=== PATIENT | female | born 1970 | race Caucasian/White ===

== ENCOUNTER 2022-06-22 12:31 | Emergency (ER) | payer OTHER ==
[2022-06-22 13:11] VITALS: BP 168/101; PULSE 85; TEMP 98
--- NOTE | 2022-06-22 16:03 | ED ---
General Adult HPI - General Chief complaint: Abdominal Pain Stated complaint: infected hernia Time Seen by Provider: 06/22/22 15:39 Source: patient Mode of arrival: ambulatory Limitations: no limitations - History of Present Illness Initial comments: Dictation was produced using [employer] dictation software. please excuse any grammatical, word or spelling errors. Chief Complaint: 52-year-old female presents emergency department for evaluation of hernia History of Present Illness: Patient's 52-year-old female she has a history of chronic left abdominal ventral hernia. Patient states that this hernia is been there for years. She called her primary care doctor because her hernia has been leaking fluid for the last couple weeks. It has any other abdominal pain. No nausea vomiting. No fevers. Patient states that her hernia appears to be baseline for the last several months. The ROS documented in this emergency department record has been reviewed and confirmed by me. Those systems with pertinent positive or negative responses have been documented in the HPI. All other systems are other negative and/or noncontributory. PHYSICAL EXAM: General Impression: Alert and oriented x3, not in acute distress HEENT: Normocephalic atraumatic, extra-ocular movements intact, pupils equal and reactive to light bilaterally, mucous membranes moist. Cardiovascular: Heart regular rate and rhythm Chest: Able to complete full sentences, no retractions, no tachypnea Abdomen: abdomen soft, large incarcerated hernia to the left lower abdomen, there is some shallow ulcerations noted within the skin folds. There doesn't appear to be debris collected in the skin folds, non-distended, no organomegaly Musculoskeletal: Pulses present and equal in all extremities, no peripheral edema Motor: no focal deficits noted Neurological: CN II-XII grossly intact, no focal motor or sensory deficits noted Skin: Intact with no visualized rashes Psych: Normal affect and mood ED course: 52-year-old female presents to the emergency department for leaking lower left abdominal hernia. Patient has had a hernia for years. Vital Signs upon arrival are within acceptable limits. Leakage is coming from shallow ulcerations within the skin fold. Laboratory evaluation obtained. Abdominal labs are negative. Patient observed in emergency department for approximately 4 hours. Patient given outpatient referral to general surgeon. She is told to keep the area as clean and dry as possible. Return precautions discussed. Patient is agreeable at discharge. - Related Data Allergies Allergy/AdvReac Type Severity Reaction Status Date / Time aspirin Allergy Rash/Hives Verified 06/22/22 13:11 Penicillins Allergy Rash/Hives Verified 06/22/22 13:11 Review of Systems ROS Statement: Those systems with pertinent positive or pertinent negative responses have been documented in the HPI. ROS Other: All systems not noted in ROS Statement are negative. Past Medical History Past Medical History: Hypertension History of Any Multi-Drug Resistant Organisms: None Reported Past Surgical History: No Surgical Hx Reported Past Psychological History: No Psychological Hx Reported Smoking Status: Never smoker Past Alcohol Use History: None Reported Past Drug Use History: Marijuana General Exam Limitations: no limitations Course Vital Signs 06/22/22 13:09 Temperature 98 F Pulse Rate 85 Respiratory 20 Rate Blood Pressure 168/101 O2 Sat by Pulse 99 Oximetry Medical Decision Making - Lab Data Result diagrams: 06/22/22 16:09 06/22/22 16:09 Lab Results 06/22/22 06/22/22 06/22/22 Range/Units 16:09 16:09 16:09 WBC 8.4 (3.8-10.6) k/uL RBC 4.56 (3.80-5.40) m/uL Hgb 13.1 (11.4-16.0) gm/dL Hct 39.9 (34.0-46.0) % MCV 87.4 (80.0-100.0) fL MCH 28.7 (25.0-35.0) pg MCHC 32.8 (31.0-37.0) g/dL RDW 15.0 (11.5-15.5) % Plt Count 255 (150-450) k/uL MPV 7.7 Neutrophils % 70 % Lymphocytes % 21 % Monocytes % 5 % Eosinophils % 2 % Basophils % 1 % Neutrophils # 5.9 (1.3-7.7) k/uL Lymphocytes # 1.8 (1.0-4.8) k/uL Monocytes # 0.4 (0-1.0) k/uL Eosinophils # 0.1 (0-0.7) k/uL Basophils # 0.1 (0-0.2) k/uL PT 9.8 (9.0-12.0) sec INR 0.9 (<1.2) APTT 23.5 (22.0-30.0) sec Sodium 139 (137-145) mmol/L Potassium 4.5 (3.5-5.1) mmol/L Chloride 100 (98-107) mmol/L Carbon Dioxide 28 (22-30) mmol/L Anion Gap 11 mmol/L BUN 21 H (7-17) mg/dL Creatinine 0.91 (0.52-1.04) mg/dL Est GFR (CKD-EPI)AfAm 83 (>60 ml/min/1.73 sqM) Est GFR (CKD-EPI)NonAf 72 (>60 ml/min/1.73 sqM) Glucose 85 (74-99) mg/dL Plasma Lactic Acid Claude (0.7-2.0) mmol/L Calcium 9.4 (8.4-10.2) mg/dL Total Bilirubin 0.3 (0.2-1.3) mg/dL AST 25 (14-36) U/L ALT 33 (4-34) U/L Alkaline Phosphatase 115 (38-126) U/L Total Protein 7.0 (6.3-8.2) g/dL Albumin 4.5 (3.5-5.0) g/dL 06/22/22 Range/Units 16:09 WBC (3.8-10.6) k/uL RBC (3.80-5.40) m/uL Hgb (11.4-16.0) gm/dL Hct (34.0-46.0) % MCV (80.0-100.0) fL MCH (25.0-35.0) pg MCHC (31.0-37.0) g/dL RDW (11.5-15.5) % Plt Count (150-450) k/uL MPV Neutrophils % % Lymphocytes % % Monocytes % % Eosinophils % % Basophils % % Neutrophils # (1.3-7.7) k/uL Lymphocytes # (1.0-4.8) k/uL Monocytes # (0-1.0) k/uL Eosinophils # (0-0.7) k/uL Basophils # (0-0.2) k/uL PT (9.0-12.0) sec INR (<1.2) APTT (22.0-30.0) sec Sodium (137-145) mmol/L Potassium (3.5-5.1) mmol/L Chloride (98-107) mmol/L Carbon Dioxide (22-30) mmol/L Anion Gap mmol/L BUN (7-17) mg/dL Creatinine (0.52-1.04) mg/dL Est GFR (CKD-EPI)AfAm (>60 ml/min/1.73 sqM) Est GFR (CKD-EPI)NonAf (>60 ml/min/1.73 sqM) Glucose (74-99) mg/dL Plasma Lactic Acid Claude 1.0 (0.7-2.0) mmol/L Calcium (8.4-10.2) mg/dL Total Bilirubin (0.2-1.3) mg/dL AST (14-36) U/L ALT (4-34) U/L Alkaline Phosphatase (38-126) U/L Total Protein (6.3-8.2) g/dL Albumin (3.5-5.0) g/dL Disposition Clinical Impression: Abdominal wall hernia Disposition: HOME SELF-CARE Condition: Good Instructions (If sedation given, give patient instructions): Ventral Hernia (ED) Is patient prescribed a controlled substance at d/c from ED?: No Referrals: Ace Wilson MD [STAFF PHYSICIAN] - 1-2 days
[2022-06-22 16:20] LABS: Basophils # (A) 0.1 k/uL (0-0.2); Basophils % (A) 1 %; Eosinophils # (A) 0.1 k/uL (0-0.7); Eosinophils % (A) 2 %; HCT 39.9 % (34.0-46.0); HGB 13.1 gm/dL (11.4-16.0); Lymphocytes # (A) 1.8 k/uL (1.0-4.8); Lymphocytes % (A) 21 %; MCH 28.7 pg (25.0-35.0); MCHC 32.8 g/dL (31.0-37.0); MCV 87.4 fL (80.0-100.0); Mean Platelet Volume 7.7; Monocytes # (A) 0.4 k/uL (0-1.0); Monocytes % (A) 5 %; Neutrophils # (A) 5.9 k/uL (1.3-7.7); Neutrophils % (A) 70 %; Platelet Count 255 k/uL (150-450); RBC 4.56 m/uL (3.80-5.40); WBC 8.4 k/uL (3.8-10.6)
[2022-06-22 16:33] LABS: Albumin 4.5 g/dL (3.5-5.0); Calcium 9.4 mg/dL (8.4-10.2); Potassium 4.5 mmol/L (3.5-5.1); Total Bilirubin 0.3 mg/dL (0.2-1.3)
[2022-06-22 16:38] LABS: INR 0.9 (<1.2); Partial Thromboplastin Time 23.5 sec (22.0-30.0); Prothrombin Time 9.8 sec (9.0-12.0)
[2022-06-22] MEDS ORDERED: NYSTATIN 100,000UNIT/GM CREAM 30 GM TUBE TOPICAL STA (16:45)
[2022-06-22 17:13] VITALS: RESP 18
[2022-06-22] MEDS ORDERED: NYSTATIN 100,000UNIT/GM CREAM 30 GM TUBE TOPICAL SCH (21:00)
== END 2022-06-22 17:13 | disposition home or self-care (01) ==
LOC: EC 12:31
DX: K46.9 Unspecified abdominal hernia without obstruction or gangrene (principal); I10 Essential (primary) hypertension; F12.90 Cannabis use, unspecified, uncomplicated; Z88.0 Allergy status to penicillin; Z88.6 Allergy status to analgesic agent
CPT/HCPCS: 36415; 80053; 83605; 85025; 85610; 85730; 99284

== ENCOUNTER 2022-07-28 09:39 | Observation (INO) | payer OTHER ==
[2022-07-23 14:30] VITALS: BMI 66.5
[~2022-07-28 09:39] MED LIST: ACETAMINOPHEN TAB 500 MG TAB PO PRN; DEXAMETHASONE SOD PHOSPHATE 4 MG/ML 1 ML VIAL IV ONE; HEPARIN SODIUM,PORCINE/PF 5,000 UNIT/0.5 ML SYRINGE SQ PRN; LACTATED RINGERS 1,000 ML IV SCH; MIDAZOLAM 2 MG/2 ML VIAL IV PRN; ONDANSETRON 4 MG/2 ML VIAL IVP ONE; SCOPOLAMINE 1 MG/72 HR PATCH TRANSDERM ONE; ceFAZolin 3 GM in SODIUM CHLORIDE 0.9% 100 ML IVPB PRN
[2022-07-28 11:49] LABS: Glucose,Whole Blood 99 mg/dL (70-110)
[2022-07-28 12:01] LABS: Basophils % (A) 1 %; Eosinophils # (A) 0.1 k/uL (0-0.7); Eosinophils % (A) 1 %; HCT 35.6 % (34.0-46.0); HGB 12.2 gm/dL (11.4-16.0); Lymphocytes # (A) 1.8 k/uL (1.0-4.8); Lymphocytes % (A) 20 %; MCH 29.7 pg (25.0-35.0); MCHC 34.1 g/dL (31.0-37.0); Mean Platelet Volume 8.2; Monocytes # (A) 0.4 k/uL (0-1.0); Monocytes % (A) 4 %; Neutrophils # (A) 6.5 k/uL (1.3-7.7); Neutrophils % (A) 72 %; Platelet Count 247 k/uL (150-450); RDW 15.2 % (11.5-15.5)
[2022-07-28] MEDS ORDERED: ONDANSETRON 4 MG/2 ML VIAL IVP ONE (12:04)
[2022-07-28] MEDS ORDERED: DEXAMETHASONE SOD PHOSPHATE 4 MG/ML 1 ML VIAL IVP ONE (12:05)
[2022-07-28 12:16] LABS: African American GFR (CKD) >90 (>60 ml/min/1.73 sqM); Anion Gap 7 mmol/L; Blood Urea Nitrogen 18 mg/dL (7-17); Calcium 9.2 mg/dL (8.4-10.2); Carbon Dioxide 28 mmol/L (22-30); Chloride 104 mmol/L (98-107); Glucose 100 mg/dL (74-99); Non-African American GFR(CKD) 82 (>60 ml/min/1.73 sqM); Potassium 4.2 mmol/L (3.5-5.1); Sodium 139 mmol/L (137-145)
[2022-07-28] MEDS: fentaNYL (PF) 50 MCG/1 ML VIAL IVP ONE ×2 (12:35→12:57)
--- NOTE | 2022-07-28 12:46 | P.GSHP ---
History of Present Illness H&P Date: 07/28/22 Chief Complaint: Incarcerated ventral hernia This a 52-year-old female who presents today for open repair of incarcerated ventral hernia. Patient has developed a tender mass just above her umbilicus. Patient's morbid obese. BMI 65. Past Medical History Past Medical History: Asthma, Hypertension Additional Past Medical History / Comment(s): IBS. NEUROPATHY RIGHT LEG History of Any Multi-Drug Resistant Organisms: None Reported Past Surgical History: Orthopedic Surgery Additional Past Surgical History / Comment(s): PURVIS CYST REMOVAL MULT. TIMES LEFT KNEE. LEFT KNEE SCOPE/MENISCUS REPAIR. D&C Past Anesthesia/Blood Transfusion Reactions: No Reported Reaction Past Psychological History: Depression Smoking Status: Former smoker Past Alcohol Use History: None Reported Past Drug Use History: Marijuana - Past Family History Mother Family Medical History: No Reported History Medications and Allergies Home Medications Medication Instructions Recorded Confirmed Type ARIPiprazole [Abilify] 5 mg PO DAILY 07/28/22 07/28/22 History Acetaminophen [Tylenol] 325 mg PO PRN 07/28/22 History Beclomethasone Dipropionate [Qvar 1 puff INHALATION BID 07/28/22 07/28/22 History 40 mcg Redihaler] Beclomethasone Dipropionate [Qvar 1 puff INHALATION BID 07/28/22 07/28/22 History 80mcg Redihaler] Cetirizine HCl 10 mg PO DAILY 07/28/22 07/28/22 History Furosemide [Lasix] 40 mg PO DAILY 07/28/22 07/28/22 History Ibuprofen 800 mg PO Q8H PRN 07/28/22 07/28/22 History Metoprolol Succinate (ER) [Toprol 25 mg PO DAILY 07/28/22 07/28/22 History Xl] Omeprazole [PriLOSEC] 10 mg PO DAILY 07/28/22 07/28/22 History Potassium Chloride [Klor-Con M20] 20 meq PO DAILY 07/28/22 07/28/22 History Allergies Allergy/AdvReac Type Severity Reaction Status Date / Time aspirin Allergy Rash/Hives Verified 07/28/22 11:06 Penicillins Allergy Rash/Hives Verified 07/28/22 11:06 Surgical - Exam Vital Signs Temp Pulse Resp BP Pulse Ox 97.4 F L 82 20 141/60 97 07/28/22 11:15 12/07/22 11:15 07/28/22 11:15 07/28/22 11:15 07/28/22 11:15 - General well developed, well nourished, no distress - Eyes PERRL - ENT normal pinna - Neck no masses - Respiratory normal expansion - Cardiovascular Rhythm: regular - Abdomen Abdomen is very obese. Patient has a large pannus. There is a 10 cm incarcerated ventral hernia located above the umbilicus Abdomen: soft, non tender Results - Labs 07/28/22 11:52 07/28/22 11:52 Abnormal Lab Results - Last 24 Hours (Table) 07/28/22 Range/Units 11:52 BUN 18 H (7-17) mg/dL Glucose 100 H (74-99) mg/dL Diabetes panel 07/28/22 Range/Units 11:52 Sodium 139 (137-145) mmol/L Potassium 4.2 (3.5-5.1) mmol/L Chloride 104 (98-107) mmol/L Carbon Dioxide 28 (22-30) mmol/L BUN 18 H (7-17) mg/dL Creatinine 0.82 (0.52-1.04) mg/dL Glucose 100 H (74-99) mg/dL Calcium 9.2 (8.4-10.2) mg/dL Calcium panel 07/28/22 Range/Units 11:52 Calcium 9.2 (8.4-10.2) mg/dL Pituitary panel 07/28/22 Range/Units 11:52 Sodium 139 (137-145) mmol/L Potassium 4.2 (3.5-5.1) mmol/L Chloride 104 (98-107) mmol/L Carbon Dioxide 28 (22-30) mmol/L BUN 18 H (7-17) mg/dL Creatinine 0.82 (0.52-1.04) mg/dL Glucose 100 H (74-99) mg/dL Calcium 9.2 (8.4-10.2) mg/dL Adrenal panel 07/28/22 Range/Units 11:52 Sodium 139 (137-145) mmol/L Potassium 4.2 (3.5-5.1) mmol/L Chloride 104 (98-107) mmol/L Carbon Dioxide 28 (22-30) mmol/L BUN 18 H (7-17) mg/dL Creatinine 0.82 (0.52-1.04) mg/dL Glucose 100 H (74-99) mg/dL Calcium 9.2 (8.4-10.2) mg/dL Assessment and Plan Assessment: Incarcerated ventral hernia. We'll perform open repair. Patient's aware the risk due to her coronaries with morbid obese. She is also aware the risk of possible postoperative infection or seroma.
[2022-07-28] MEDS ORDERED: NEOSTIGMINE 1 MG/ML 10 ML VIAL ONE (13:16)
[2022-07-28] MEDS ORDERED: GLYCOPYRROLATE 0.2 MG/ML 2 ML VIAL ONE (13:16)
[2022-07-28] MEDS ORDERED: MIDAZOLAM 2 MG/2 ML VIAL ONE (13:16)
[2022-07-28] MEDS ORDERED: fentaNYL (PF) 50 MCG/ML 2 ML AMP ONE (13:16)
[2022-07-28] MEDS ORDERED: PROPOFOL 10 MG/ML 20 ML VIAL IV ONE (13:16)
[2022-07-28] MEDS ORDERED: ROCURONIUM 10 MG/ML (5 ML VIAL) IV ONE (13:16)
[2022-07-28] MEDS ORDERED: LIDOCAINE 2% INJ 20 MG/ML (2 ML VIAL) ONE (13:16)
[2022-07-28] MEDS ORDERED: SUCCINYLCHOLINE CHLORIDE 200 MG/10 ML VIAL IV ONE (13:16)
[2022-07-28] MEDS ORDERED: ACETAMINOPHEN TAB 325 MG TAB PO PRN (14:20)
[2022-07-28] MEDS ORDERED: LACTATED RINGERS 1,000 ML IV ONE (14:20)
[2022-07-28] MEDS ORDERED: METOCLOPRAMIDE 5 MG/ML 2 ML VIAL IVP PRN (14:20)
[2022-07-28] MEDS ORDERED: ONDANSETRON 4 MG/2 ML VIAL IVP PRN (14:20)
[2022-07-28] MEDS ORDERED: HYDROmorphone 1 MG/ML 1 ML SYRINGE IVP PRN (14:20)
[2022-07-28] MEDS ORDERED: NALOXONE 0.4 MG/ML 1 ML VIAL IV PRN (14:20)
--- NOTE | 2022-07-28 14:20 | P.OP ---
Date of Procedure: 07/28/22 Preoperative Diagnosis: Incarcerated ventral hernia Postoperative Diagnosis: Incarcerated ventral hernia Morbid obesity, BMI 65 Procedure(s) Performed: Open repair of incarcerated ventral hernia with mesh Partial omentectomy Anesthesia: JANE Surgeon: Ace Wilson Estimated Blood Loss (ml): 5 Pathology: other (Omentum/hernia sac) Condition: stable Disposition: PACU Description of Procedure: Patient's placed on the operative table in the supine position. She received general anesthesia. Her abdomen was prepped and draped usual sterile fashion. The patient had a large incarcerated ventral hernia located just above the umbilicus. The skin was incised. And then using blunt and sharp dissection with cautery the hernia sac was dissected free from subcutaneous tissue. The hernia sac was opened. There was incarcerated small bowel and omentum. Small bowel was reduced into the perineal cavity. The omentum was then transected with the Enseal device sent to pathology. The fascial defect was then closed using. 0 Ethibond suture. A piece of 6 x 6 Prolene mesh was placed over top of the repair and secured with a secure strap tacker. A BRANDON drains placed over top the mesh and brought through separate stab incision. Sarwat's fascia closed 0 Vicryl. Skin was closed cornelio. Sterile dressing applied. Patient top she will was sent to recovery room in stable condition.
[2022-07-28] MEDS: HYDROmorphone 0.5 MG/0.5 ML SYRINGE IVP PRN ×4 (14:35→21:55)
[2022-07-28] MEDS: KETOROLAC 15 MG/ML 1 ML VIAL IVP SCH (16:43)
[2022-07-28] MEDS: HYDROcodone/APAP 5-325MG 1 EACH TAB PO PRN (20:42)
[2022-07-28] MEDS: DOCUSATE 100 MG CAP PO SCH (20:43)
[2022-07-29] MEDS: KETOROLAC 15 MG/ML 1 ML VIAL IVP SCH ×3 (00:13→11:54)
--- NOTE | 2022-07-29 00:39 | P.CONS ---
History of Present Illness - Reason for Consult Consult date: 07/28/22 Medical management - Chief Complaint Repair of hernia - History of Present Illness Patient is a 51-year-old female with a known history of hypertension, asthma, morbid obesity with BMI 65.3 and right lower extremity neuropathy nondiabetic, IBS, depression and prior history of smoking and marijuana use was admitted to the hospital for repair of incarcerated ventral hernia with mesh. Patient und erwent the procedure and is status post open repair of incarcerated ventral hernia with mesh and also partial omentectomy. Patient is currently sitting on her bed. Abdominal pain is controlled with m edication. No complaints of chest pain or shortness of breath. No nausea vomiting or abdominal pain or diarrhea. Patient does have chronic right lower extremity venous stasis ulcers and was following wound care clinic. Patient has been afebrile. No complaints of chest pain or shortness of breath. No nausea vomiting or abdominal pain or diarrhea. No dizziness or lightheadedness. Postoperatively blood pressure was 172/76. Pulse is 92 respiration 18 and pulse ox 93% on room air. Laboratory data showed WBC 9.0 hemoglobin 12.2 and platelets 247, sodium 139 potassium 4.2 chloride 104 bicarb is 28 BUN 18 and creatinine 0.8 to a calcium 9.2. Review of Systems Constitutional: Patient denies any fever or chills . No generalized weakness or weight loss. Abdomen: Patient denied nausea vomiting and diarrhea . Patient complains of soreness at the surgical site, no abdominal pain. Cardiovascular: Patient denies any chest pain or short of breath no palpitations. Respiratory: patient denied any cough is from production. No shortness of breath Neurologic: Patient denied any numbness or tingling headache. Musculoskeletal: Patient denies any complaints of joint swelling or deformity. Skin: Negative Psychiatric: Negative Endocrine: No heat or cold intolerance. No recent weight gain. Genitourinary: No dysuria or hematuria. All other 14 point ROS negative except the above Past Medical History Past Medical History: Asthma, Hypertension Additional Past Medical History / Comment(s): IBS. NEUROPATHY RIGHT LEG History of Any Multi-Drug Resistant Organisms: None Reported Past Surgical History: Orthopedic Surgery Additional Past Surgical History / Comment(s): PURVIS CYST REMOVAL MULT. TIMES LEFT KNEE. LEFT KNEE SCOPE/MENISCUS REPAIR. D&C Past Anesthesia/Blood Transfusion Reactions: No Reported Reaction Past Psychological History: Depression Smoking Status: Former smoker Past Alcohol Use History: None Reported Past Drug Use History: Marijuana - Past Family History Mother Family Medical History: No Reported History Medications and Allergies Home Medications Medication Instructions Recorded Confirmed Type ARIPiprazole [Abilify] 5 mg PO DAILY 07/28/22 07/28/22 History Acetaminophen [Tylenol] 325 mg PO PRN 07/28/22 History Beclomethasone Dipropionate [Qvar 1 puff INHALATION BID 07/28/22 07/28/22 History 40 mcg Redihaler] Beclomethasone Dipropionate [Qvar 1 puff INHALATION BID 07/28/22 07/28/22 History 80mcg Redihaler] Cetirizine HCl 10 mg PO DAILY 07/28/22 07/28/22 History Furosemide [Lasix] 40 mg PO DAILY 07/28/22 07/28/22 History Ibuprofen 800 mg PO Q8H PRN 07/28/22 07/28/22 History Metoprolol Succinate (ER) [Toprol 25 mg PO DAILY 07/28/22 07/28/22 History Xl] Omeprazole [PriLOSEC] 10 mg PO DAILY 07/28/22 07/28/22 History Potassium Chloride [Klor-Con M20] 20 meq PO DAILY 07/28/22 07/28/22 History Allergies Allergy/AdvReac Type Severity Reaction Status Date / Time aspirin Allergy Rash/Hives Verified 07/28/22 11:06 Penicillins Allergy Rash/Hives Verified 07/28/22 11:06 Physical Exam Vitals: Vital Signs Temp Pulse Resp BP BP Pulse Ox 07/28/22 19:32 97.8 F 92 17 172/76 93 L 07/28/22 16:31 97.6 F 92 16 150/84 95 07/28/22 15:40 88 16 112/78 94 L 07/28/22 15:25 93 16 145/72 95 07/28/22 15:10 88 16 147/78 95 07/28/22 14:55 92 16 151/73 98 07/28/22 14:40 100 16 166/71 91 L 07/28/22 14:26 105 H 16 168/81 90 L 07/28/22 13:00 76 16 157/74 96 07/28/22 12:50 94 16 95 07/28/22 11:15 97.4 F L 82 20 141/60 97 Intake and Output 07/28/22 07/28/22 07/29/22 14:59 22:59 06:59 Intake Total 1600 Output Total 50 Balance 1550 Intake: IV 1600 Output: Estimated Blood Loss 50 Other: # Voids 0 Weight 177.9 kg 177.9 kg PHYSICAL EXAMINATION: Patient is lying in the bed comfortably, no acute distress, awake alert and oriented. Mildly obese.. HEENT: Normocephalic. Neck is supple. Pupils reactive. Nostrils clear. Oral cavity is moist. Neck reveals no JVD, carotid bruits, or thyromegaly. CHEST EXAMINATION: Trachea is central. Symmetrical expansion. Bibasilar diminished sounds. No wheezing nonlabored breathing.. CARDIAC: Normal S1, S2 with no gallops. No murmurs ABDOMEN: Soft. Bowel sounds normal. No organomegaly. No abdominal bruits. Extremities: Bilateral lower extremity chronic venostasis changes and right lower extremity skin excoriation and superficial ulcers on the right lower extremity. . No clubbing or cyanosis Neurologically awake, alert, oriented x3 with well-coordinated movements. No focal deficits noted Skin: No rash or skin lesions. Psychiatric: Coperative. Nonsuicidal Musculoskeletal: No joint swelling or deformity. Normal range of motion. Results CBC & Chem 7: 07/28/22 11:52 07/28/22 11:52 Labs: Abnormal Lab Results - Last 24 Hours (Table) 07/28/22 Range/Units 11:52 BUN 18 H (7-17) mg/dL Glucose 100 H (74-99) mg/dL Assessment and Plan Assessment: Status post open repair of incarcerated ventral hernia and partial omentectomy postoperative day 0 Hypertension uncontrolled History of asthma not in exacerbation IBS Right lower extremity peripheral neuropathy and chronic ulcers. Depression Prior history of smoking History of marijuana use DVT prophylaxis Morbid obesity with BMI 65.3 Plan: Agent will be continued on pain management, bowel regimen and encourage incentive spirometry. Continue with the DuoNeb's and con with home medications including ability. Patient is on Lasix and metoprolol at home which will be started back, titrate blood pressure medications as needed. Follow-up repeat labs. Further recommendations based on the clinical course. Thank you for your consult.
[2022-07-29] MEDS ORDERED: IPRATROPIUM-ALBUTEROL 3 ML NEB INHALATION PRN (00:40)
[2022-07-29] MEDS: HYDROcodone/APAP 5-325MG 1 EACH TAB PO PRN ×2 (04:04→15:47)
[2022-07-29] MEDS: DOCUSATE 100 MG CAP PO SCH (08:18)
[2022-07-29] MEDS ORDERED: ENOXAPARIN 40 MG/0.4 ML SYRINGE SQ SCH (09:00)
[2022-07-29] MEDS ORDERED: POTASSIUM CHLORIDE ER 20 MEQ TAB.ER PO SCH (09:00)
[2022-07-29] MEDS ORDERED: ARIPiprazole 5 MG TAB PO SCH (09:00)
[2022-07-29] MEDS ORDERED: METOPROLOL SUCCINATE (ER) 25 MG TAB.ER.24H PO SCH (09:00)
[2022-07-29] MEDS ORDERED: PANTOPRAZOLE 40 MG TABLET PO SCH (09:00)
[2022-07-29] MEDS ORDERED: FUROSEMIDE 40 MG TAB PO SCH (09:00)
[2022-07-29 10:38] LABS: Basophils # (A) 0.03 X 10*3/uL (0.00-0.10); Basophils % (A) 0.3 %; Eosinophils # (A) 0 X 10*3/uL (0.04-0.35); Eosinophils % (A) 0 %; HCT 39.3 % (37.2-46.3); HGB 11.8 g/dL (12.0-15.0); Immature Grans, Automated 0.6 %; Lymphocytes # (A) 1.87 X 10*3/uL (0.90-5.00); Lymphocytes % (A) 17.2 %; MCH 27.6 pg (27.0-32.0); Mean Platelet Volume 10.3 fL (9.5-12.2); Monocytes # (A) 0.71 X 10*3/uL (0.20-1.00); Monocytes % (A) 6.5 %; NRBC Per 100 WBC 0 /100 WBCS (0.0-0.0); Neutrophils # (A) 8.19 X 10*3/uL (1.80-7.70); Neutrophils % (A) 75.4 %; Platelet Count 273 X 10*3/uL (140-440); RBC 4.27 X 10*6/uL (4.10-5.20); RDW 15.7 % (11.5-14.5); WBC 10.86 X 10*3/uL (4.50-10.00)
[2022-07-29 10:47] LABS: African American GFR (CKD) 84.6 (60.0-200.0); Anion Gap 14.2 mmol/L (10.00-18.00); Blood Urea Nitrogen 19.8 mg/dL (9.0-27.0); Calcium 9.7 mg/dL (8.7-10.3); Carbon Dioxide 22.8 mmol/L (20.0-27.5); Potassium 4.6 mmol/L (3.5-5.5)
--- NOTE | 2022-07-29 14:30 | P.DS ---
Providers Date of admission: 07/29/22 08:40 Expected date of discharge: 07/29/22 Attending physician: Ace Wilson Consults: 07/28/22 14:20 Consult Physician Routine Consulting Provider: Cate Pichardo Consult Reason/Comments: Medical management Do you want consulting provider notified?: Yes Primary care physician: Cassie Anna Jaques Hospital Course: Discharge diagnosis 1. Incarcerated ventral hernia and morbid obesity status post open repair of incarcerated ventral hernia with mesh and partial omentectomy Hospital course This a 52-year-old female who presents today for open repair of incarcerated ventral hernia. Patient has developed a tender mass just above her umbilicus. Patient's morbid obese. BMI 65. Patient is status post open repair of incarcerated ventral hernia with mesh and partial omentectomy. Patient tolerated surgery well. Her pain is controlled. She is tolerating diet. She has up and ambulating. She is having flatus. Denies any difficulty urinating. Incision site clean dry and intact. Patient is afebrile. She is stable for discharge. Please refer to chart for any further details Patient Condition at Discharge: Stable Plan - Discharge Summary Discharge Rx Participant: Yes New Discharge Prescriptions: New HYDROcodone/APAP 5-325MG [Graff 5-325] 1 tab PO Q6HR PRN 3 Days #12 tab PRN Reason: Pain Docusate [Colace] 100 mg PO BID #30 capsule Cephalexin [Keflex] 500 mg PO Q8HR 7 Days #21 cap Continue Metoprolol Succinate (ER) [Toprol XL] 25 mg PO DAILY Beclomethasone Dipropionate [Qvar 40 mcg Redihaler] 1 puff INHALATION BID ARIPiprazole [Abilify] 5 mg PO DAILY Furosemide [Lasix] 40 mg PO DAILY Potassium Chloride [Klor-Con M20] 20 meq PO DAILY Cetirizine HCl 10 mg PO DAILY Beclomethasone Dipropionate [Qvar 80mcg Redihaler] 1 puff INHALATION BID Omeprazole [PriLOSEC] 10 mg PO DAILY Acetaminophen [Tylenol] 325 mg PO PRN PRN Reason: Pain No Action Ibuprofen 800 mg PO Q8H PRN PRN Reason: Pain Discharge Medication List ARIPiprazole [Abilify] 5 mg PO DAILY 07/28/22 [History] Acetaminophen [Tylenol] 325 mg PO PRN 07/28/22 [History] Beclomethasone Dipropionate [Qvar 40 mcg Redihaler] 1 puff INHALATION BID 07/28/22 [History] Beclomethasone Dipropionate [Qvar 80mcg Redihaler] 1 puff INHALATION BID 07/28/22 [History] Cetirizine HCl 10 mg PO DAILY 07/28/22 [History] Furosemide [Lasix] 40 mg PO DAILY 07/28/22 [History] Ibuprofen 800 mg PO Q8H PRN 07/28/22 [History] Metoprolol Succinate (ER) [Toprol XL] 25 mg PO DAILY 07/28/22 [History] Omeprazole [PriLOSEC] 10 mg PO DAILY 07/28/22 [History] Potassium Chloride [Klor-Con M20] 20 meq PO DAILY 07/28/22 [History] Cephalexin [Keflex] 500 mg PO Q8HR 7 Days #21 cap 07/29/22 [Rx] Docusate [Colace] 100 mg PO BID #30 capsule 07/29/22 [Rx] HYDROcodone/APAP 5-325MG [Graff 5-325] 1 tab PO Q6HR PRN 3 Days #12 tab 07/29/22 [Rx] Follow up Appointment(s)/Referral(s): Ace Wilson MD [STAFF PHYSICIAN] - 08/05/22 2:50 pm Activity/Diet/Wound Care/Special Instructions: No driving while taking Graff No lifting over 10 pounds Shower daily. No soaking or tub baths for 2 weeks Very light activity until you are reevaluated at your follow up appointment with your surgeon Do not take Ibuprofen for 7 days due to increase risk of bleeding after surgery Discharge Disposition: HOME SELF-CARE
[2022-07-29 15:25] VITALS: BP 157/91; PULSE 68; RESP 19; TEMP 97.6
== END 2022-07-29 15:57 | disposition home or self-care (01) ==
LOC: OR 09:39 → 4SSUR 14:26 → OR 07-29 08:40 → 4SSUR 07-29 08:40
PROVIDERS: ADMIT Surgery; ATTEND Surgery
DX: K43.6 Other and unspecified ventral hernia with obstruction, without gangrene (principal); J45.909 Unspecified asthma, uncomplicated; I10 Essential (primary) hypertension; K58.9 Irritable bowel syndrome, unspecified; G62.9 Polyneuropathy, unspecified; Z98.890 Other specified postprocedural states; F32.A Depression, unspecified; Z87.891 Personal history of nicotine dependence; E66.01 Morbid (severe) obesity due to excess calories; Z68.44 Body mass index [BMI] 60.0-69.9, adult; I83.019 Varicose veins of right lower extremity with ulcer of unspecified site; Z79.51 Long term (current) use of inhaled steroids; Z79.899 Other long term (current) drug therapy; Z88.6 Allergy status to analgesic agent; Z88.0 Allergy status to penicillin
CPT/HCPCS: 80048 ×2; 85025 ×2; 88302; 49561; 49568; G0378; C1781; J2250; J0330; J1100; J2710; J0690; J2405; J1650; J3010 ×2; J1885 ×2; J2704; J1170; J1644; J2001

== ENCOUNTER → 2023-07-01 | Outpatient (CLI) | payer OTHER | END | disposition home or self-care (01) | LOC: RADUSWWP 14:22 | PROVIDERS: ATTEND Surgery Vascular Surgery | DX: Z53.9 Procedure and treatment not carried out, unspecified reason (principal) ==